=== PATIENT | female | born 1950 | race Caucasian/White ===

== ENCOUNTER → 2024-06-06 10:32 | Outpatient (REF) | payer MEDICARE, OTHER, SELFPAY | LOC: WDC 10:32 | PROVIDERS: ATTENDING PHYSICIAN Obstetrics & Gynecology Gynecology; FAMILY PHYSICIAN Family Medicine | DX: Z12.31 Encounter for screening mammogram for malignant neoplasm of breast (principal) | CPT/HCPCS: 77063; 77067 ==